=== PATIENT | female | born 1950 | race Caucasian/White ===

== ENCOUNTER 2016-07-15 05:34 | Day surgery (SDC) | payer BC ==
[~2016-07-15 05:34] MED LIST: ALENDRONATE SOD70 M2 PO; ALEVE220 M3 PO; ASPIR-LOW81 M1 PO; BENADRYL25 M3 PO; FLUOXETINE HCL20 M2 PO; MELOXICAM15 M1 PO; MONTELUKAST SOD10 M2 PO; PREDNISOLONE ACE5 M1 EACH EYE; TYLENOL325 M2 PO; ULTRAM50 M1 PO; VITAMIN B COMP1 EAC1 PO; VITAMIN C500 M3 PO; VITAMIN D1000 UNI3 PO; XARELTO10 M1 PO; ZESTORETIC 20-1 EAC4 PO
[2016-07-15] MEDS ORDERED: XARELTO10 M1 PO (07:45)
[2016-07-15] MEDS ORDERED: NORCO 5-325 TA1 EACH PO (07:50)
[2016-07-15] MEDS ORDERED: CYCLOBENZAPRINE5 M1 PO (07:51)
[2016-07-16] MEDS ORDERED: PHENERGAN12.5 M2 PO (07:54)
== END 2016-07-16 11:00 ==
LOC: SHSC 05:34 → ORE 07:31 → PACU 10:16 → 5EA 11:05
PROC: 0QS704Z Reposition Left Upper Femur with Internal Fixation Device, Open Approach (ICD-10-PCS; principal; 2016-07-15)
DX: S72.22XK Displaced subtrochanteric fracture of left femur, subsequent encounter for closed fracture with nonunion (principal); I10 Essential (primary) hypertension; K21.9 Gastro-esophageal reflux disease without esophagitis; Z88.8 Allergy status to other drugs, medicaments and biological substances; Z90.49 Acquired absence of other specified parts of digestive tract; Z47.33 Aftercare following explantation of knee joint prosthesis; Z98.890 Other specified postprocedural states
CPT/HCPCS: G8978-GP-CI; G8979-GP-CH; J0171; J0690; J1885; J2270; J2405; J2795